=== PATIENT | male | born 1955 | race Caucasian/White ===

== ENCOUNTER 2018-02-15 19:49 | Emergency (ER) ==
[2018-02-15 19:59] VITALS: BP 134/78; TEMP 97.6; BMI 36.1
--- NOTE | 2018-02-15 20:09 | ED.PDOC ---
General ED Provider: Dr. NADYA ABDALLA Chief Complaint: Constipation Stated Complaint: Patient is a 62 year old female who comes to the ER with complaints of no bowel movement for 10 days. Has been on Narcotics for chronic pain. Time Seen by Physician: 20:08 Mode of Arrival: Wheelchair Information Source: Patient Exam Limitations: No limitations Primary Care Provider: OUMAR LEAL Nursing and Triage Documentation Reviewed and Agree: Yes Does patient meet sepsis criteria?: No System Inflammatory Response Syndrome: Pulse >90 BPM Sepsis Protocol: For patient's 13 years and over: Temp is 96.8 and below OR 101 and greater Pulse >90 BPM Resp >20/minute Acutely Altered Mental Status Are patient's symptoms suggestive of a new infection, such as: -Pneumonia -Skin, Soft Tissue -Endocarditis -UTI -Bone, Joint Infection -Implantable Device -Acute Abdominal Infection -Wound Infection -Meningitis -Blood Stream Catheter Infection -Unknown Review of Systems - Review Of Systems Constitutional: Reports: No symptoms Eyes: Reports: No symptoms Ears, Nose, Mouth, Throat: Reports: No symptoms Respiratory: Reports: No symptoms Cardiac: Reports: No symptoms GI: Reports: Abdomen distended, Constipated. Denies: Abdominal pain, Nausea, Poor appetite, Rectal bleeding, Vomiting : Reports: No symptoms Musculoskeletal: Reports: No symptoms Skin: Reports: No symptoms Neurological: Reports: No symptoms Endocrine: Reports: No symptoms Hematologic/Lymphatic: Reports: No symptoms All Other Systems: Reviewed and Negative Past Medical History - Past Medical History Previously Healthy: Yes Endocrine: Reports: None Cardiovascular: Reports: DVT Respiratory: Reports: None Hematological: Reports: None Gastrointestinal: Reports: Liver (Cirrhosis) Genitourinary: Reports: None Neuro/Psych: Reports: None Musculoskeletal: Reports: Back Pain Cancer: Reports: None - Surgical History General Surgical History: Reports: 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 ), Other (Green filter ) - Family History Family History: Reports: Unknown - Social History Smoking Status: Current every day smoker, Heavy tobacco smoker Hx Substance Use: No Alcohol Screening: Occasionally - Immunizations Tetanus Shot up to Date: No Physical Exam - Physical Exam Appearance: Ill-appearing, Obese Ill-appearing: Moderate Pain Distress: Moderate Eyes: FERNANDO, EOMI, Conjunctiva clear Neck: Supple Respiratory: Airway patent, Breath sounds clear, Breath sounds equal, Respirations nonlabored Cardiovascular: Tachycardia GI/: Tender (Distended ), Bowel sounds hyperactive Musculoskeletal: No edema Skin: Warm, Dry Neurological: Alert, Oriented Psychiatric: Anxious Interpretation - Radiology Interpretation Radiology Interpretation By: Radiologist Radiology Results: No acute changes Exam Interpreted: CT Scan Re-Evaluation - Re-Evaluation Time of Re-Evaluation: 23:40 (Started having bowel movement after two enemas ) Status: Improved Vital Signs Stable: Yes Pain Level: improved Critical Care Note - Critical Care Note Total Time (mins): 0 Course - Course Hematology/Chemistry: 02/15/18 20:50 02/15/18 20:50 Orders, Labs, Meds: Lab Review 02/15/18 02/15/18 20:50 20:50 WBC 15.32 H RBC 4.27 L Hgb 12.6 L Hct 37.6 L MCV 88.1 MCH 29.5 MCHC 33.5 RDW Coeff of Jarred 15.5 H Plt Count 264 Immature Gran % (Auto) 0.7 Neut % (Auto) 83.2 Lymph % (Auto) 6.3 L [place] % (Auto) 8.7 Eos % (Auto) 0.8 Baso % (Auto) 0.3 Immature Gran # (Auto) 0.1 Neut # (Auto) 12.7 H Lymph # (Auto) 1.0 [place] # (Auto) 1.3 Eos # (Auto) 0.1 Baso # (Auto) 0.1 Sodium 130.7 L Potassium 4.10 Chloride 97.7 L Carbon Dioxide 30.4 H Anion Gap 6.70 BUN 17.3 Creatinine 0.73 Estimated GFR (MDRD) 108.00 BUN/Creatinine Ratio 23.69 Glucose 122.6 H Calcium 8.08 L Total Bilirubin 1.29 AST 56.9 ALT 17.9 Alkaline Phosphatase 238.8 H Total Protein 7.39 Albumin 2.63 L Globulin 4.76 Albumin/Globulin Ratio 0.55 Amylase 38.1 Lipase 25.5 Orders Category Date Time Status ED IV/MEDIPORT/POWERPORT .ONCE EMERGENCY 02/15/18 20:30 Active Enema [ED ENEMA/RECTAL TUBE] .ONCE EMERGENCY 02/15/18 20:09 Active Enema [ED ENEMA/RECTAL TUBE] .ONCE EMERGENCY 02/15/18 22:20 Active AMYLASE Stat LAB 02/15/18 20:50 Completed CBC W/ AUTO DIFF Stat LAB 02/15/18 20:50 Completed COMPREHENSIVE METABOLIC PANEL Stat LAB 02/15/18 20:50 Completed LIPASE Stat LAB 02/15/18 20:50 Completed 0.9 % Sodium Chloride [Saline Flush] MEDS 02/15/18 20:30 Discontinued 1 syr IVF PRN PRN Magnesium Citrate [Citrate of Magnesia] MEDS 02/15/18 22:39 Discontinued 10 oz PO ONCE STA Methylnaltrexone Kenedy [Relistor] MEDS 02/15/18 20:30 Stop Req 12 mg SUBCUT ONCE STA Ringers Lactated Solution [Lactated Ringers] 1,000 ml MEDS 02/15/18 20:[address] ABDOMEN/PELVIS WO CONTRAST Stat RADS 02/15/18 20:[address] CHEST W/O CONTRAST Stat RADS 02/15/18 20:28 Completed Medications Discontinued Medications Generic Name Dose Route Start Last Admin Trade Name Freq PRN Reason Stop Dose Admin Lactated Ringer's 1,000 mls @ 1,000 mls/hr 02/15/18 20:30 02/15/18 21:18 Lactated Ringers IV 02/15/18 21:29 1,000 mls/hr BOLUS STA Administration Magnesium Citrate 10 oz 02/15/18 22:39 Citrate Of Magnesia PO 02/15/18 22:40 ONCE STA Methylnaltrexone Kenedy 12 mg 02/15/18 20:30 02/15/18 21:30 Relistor SUBCUT 02/15/18 20:31 Not Given ONCE STA Sodium Chloride 1 syr 02/15/18 20:30 Saline Flush IVF PRN PRN To flush IV Vital Signs: Temp Pulse Resp BP Pulse Ox 02/15/18 19:49 97.6 F 111 H 20 134/78 93 L Departure - Departure Time of Disposition: 23:54 Disposition: HOME SELF-CARE Discharge Problem: Constipation Instructions: Constipation (ED) Condition: Fair Pt referred to PMD for follow-up: Yes IPMP verified?: No Additional Instructions: Take medications to prevent constipation push fluids Follow up with PCP in 3 days Prescriptions: Polyethylene Glycol 3350 [Miralax] 17 gm PO DAILY #30 powd.pack Allergies/Adverse Reactions: Allergies Penicillins Adverse Reaction (Verified 02/15/18 19:54) Home Medications: Ambulatory Orders Morphine Sulfate [Ms Contin] 100 mg PO BID 02/15/18 Polyethylene Glycol 3350 [Miralax] 17 gm PO DAILY #30 powd.pack 10/10/18 Disposition Discussed With: Patient
[2018-02-15] MEDS ORDERED: LACTATED RINGERS 1,000 ML IV STA (20:30)
[2018-02-15] MEDS ORDERED: RELISTOR SUBCUT STA (20:30)
--- NOTE | 2018-02-15 21:10 | CT ---
EXAM: CT of the chest without contrast History: Chest pain. Comparison: CT abdomen pelvis 02/15/2018 Technique: Multiplanar CT images through the thorax were obtained following administration of IV con trast Findings: Heart size is normal. No pericardial effusion. 3.7 cm ectatic ascending aorta. No axill yulisa lymphadenopathy. No pathologically enlarged mediastinal lymph nodes. Evaluation for hilar lymph nodes is limited due to lack of contrast administration but no bulky hilar adenopathy is seen. Emph ysema. Diffuse bronchial wall thickening. Right middle lobe and bibasilar atelectasis or pneumonia. Trace right pleural effusion. No pneumothorax. There is debris seen within the trachea bilateral ma instem bronchi. For details in the upper abdomen, please see dedicated CT of the abdomen pelvis done on the same day. There is ascites, pneumobilia and cirrhotic appearing liver with mesenteric edema. No acute osseou s abnormalities. Partially visualized postsurgical changes of the cervical spine. Impression: 1. Right middle lobe and bibasilar atelectasis or pneumonia. 2. Emphysema. 3. Diffuse bronchial wall thickening. 4. Trace right pleural effusion. 5. There is debris seen within the trachea and bilateral mainstem bronchi.
--- NOTE | 2018-02-15 21:11 | CT ---
Exam: CT of the abdomen and pelvis without contrast History: Abdominal pain and distension Technique: [address] of the abdomen and pelvis without intravascular contrast FINDINGS: See chest CT for lung bases. Moderate to large ascites present in the abdomen. Cirrhotic liver morphology with pneumobilia. Heterogeneous material within the bile duct the bile duct appear s expanded measuring up to 2 cm diameter. The pancreas appears normal. Spleen diameter of 14 x 10 c m. The bowel pattern is nonobstructive. Peritoneal lipomatosis is present. Inferior vena cava filt er in place. Atherosclerotic calcification of the aorta without aneurysm. Large pelvic ascites. Normal pelvic colonic loops. No pelvic fat inflammation. Normal pelvic genit ourinary structures. Scrotal edema incidentally noted. No acute findings of the skeleton. Impression: 1. No inflammatory process, bowel or urinary obstruction is seen. 2. Protuberant abdomen secondary to moderate to large ascites and peritoneal lipomatosis. 3. Cirrhotic liver 4. Markedly expanded bile duct with indeterminate intraluminal material and pneumobilia
[2018-02-15] MEDS ORDERED: CITRATE OF MAGNESIA PO STA (22:39)
== END 2018-02-16 01:00 | disposition home or self-care (01) ==
LOC: ED 19:49
DX: K59.00 Constipation, unspecified (principal); F17.210 Nicotine dependence, cigarettes, uncomplicated
CPT/HCPCS: 36415; 80053; 82150; 83690; 85025; 96360; 96361; 99283

== ENCOUNTER 2018-02-20 13:11 | Outpatient (CLI) | END 2018-02-20 13:31 | disposition short-term general hospital (02) | LOC: AMBL 13:11 | PROVIDERS: ATTEND Internal Medicine | DX: K59.00 Constipation, unspecified (principal); R10.84 Generalized abdominal pain; R00.0 Tachycardia, unspecified; L98.9 Disorder of the skin and subcutaneous tissue, unspecified; Z89.9 Acquired absence of limb, unspecified ==